=== PATIENT | female | born 1950 | race Caucasian/White ===

== ENCOUNTER 2016-12-24 07:20 | Emergency (ER) | payer OTHER ==
[2016-12-24] MEDS ORDERED: ASPIRIN 81 MG CHEWABLE TAB PO ONE (07:32)
[2016-12-24] MEDS ORDERED: MAALOX/LIDO/HYOSC GI COCKTAIL 55 ML BOTTLE PO ONE (07:32)
[2016-12-24] MEDS ORDERED: FAMOTIDINE 20 MG in NS 100 ML IV ONE (07:33)
--- NOTE | 2016-12-24 07:37 | UCPHY ---
H & P Time Seen by Provider: 12/24/16 07:26 Patient Type: Established HPI/ROS: HPI Abdominal bloating. Chest discomfort. 66-year-old female by private vehicle with her . This patient reports that she has had a bloating sensation in her abdomen for the last 36 hours. She reports she is taking antacids for this with no relief. She reports that last night at around 1:00 a.m. she developed which she describes as a deep chest discomfort described as a tightness and squeezing sensation. She reports she still has this to some extent but it is better at this time. She has had associated nausea but no vomiting. Last bowel movement was yesterday. This was normal. No bloody or melenic stool. No diarrhea. Last meal was yesterday evening at dinner time. She is a smoker. She also has a significant family history of heart disease. No other risk factors. ROS: Constitutional: No fever, no chills. No weakness. Eyes: No discharge. No changes in vision. ENT: No sore throat. No nasal congestion or rhinorrhea. Respiratory: No cough. No shortness of breath. Cardiac: As above, no palpitations. Gastrointestinal: As above, no vomiting, no diarrhea. Genitourinary: No hematuria. No dysuria or increased frequency with urination. Musculoskeletal: No back pain. No neck pain. No myalgias or arthralgias. Skin: No rashes. Neurological: No headache. No focal weakness or altered sensation. Past medical history: Depression. She takes and antidepressive medication. Dr. Patton is her primary care physician. Social history: Smoker. Social alcohol. Here with . Physical Exam: General Appearance: Alert, no distress. This patient is responding to questions appropriately and in full sentences. This patient appears well- hydrated and well-nourished. Eyes: Pupils equal and round no pallor or injection. No lid edema, erythema or injection. Respiratory: There are no retractions, lungs are clear to auscultation with good air movement bilaterally. Cardiovascular: Regular rate and rhythm. No murmur. Gastrointestinal: Abdomen is soft and nontender, no masses, bowel sounds normal. No focal tenderness at McBurney's point. No Somers sign. Neurological: Motor sensory function is grossly intact. Cranial nerves are normal. Gait is normal. Skin: Warm and dry, no rashes. Musculoskeletal: Neck is supple and nontender. Extremities are symmetrical. All joints range without pain or impingement. Psychiatric: No agitation. No depression. Database: EKG: EKG time is 7:37 a.m.; EKG shows a narrow complex normal sinus rhythm with a ventricular rate of 82. The MN, QRS, QT intervals are within normal limits. There are no ST-T wave changes indicative of ischemic or injury pattern. No evidence of right heart strain. Interpreted by me. Imaging: Chest x-ray AP portable; the cardiac mediastinal silhouette is unremarkable. No evidence of infiltrate or pneumothorax. Emphysema. No other acute cardiopulmonary disease process noted. Interpreted by me. CT angiogram of chest; no evidence of pulmonary embolism. No evidence of aortic dissection or aortic aneurysm. Emphysema. Otherwise negative study. Results were discussed with staff radiologist Dr. John Banks. Procedures: Emergency department course: IV placed. She was placed on a monitor. She was given 324 mg of chewed aspirin. She will be given a GI cocktail as well as 20 mg of IV Pepcid. EKG performed. Chest x-ray obtained. 11:00 a.m., patient re-evaluated. Resting comfortably at this time. She has been asymptomatic since above medications. No chest pain. No shortness of breath. Results of all diagnostic testing discussed with her and her . I recommended admission for serial troponins and stress testing. She does not want to be admitted. She understands the risks of declining admission in my professional opinion. We will have her follow up with [facility] for a stress test within the next 3 days. Her troponin was also repeated before discharge. This was a 3 hour delta troponin. This was negative. Return to Urgent Care/emergency department precautions discussed with her and her . All their questions were answered. She was discharged in good condition. Differential Diagnosis: The differential diagnosis on this patient includes but is not limited to indigestion, esophageal spasm, pleurisy, acute coronary syndrome. This represents a partial list of diagnoses considered. These considerations are based on history, physical exam, past history, reassessment and diagnostic testing. Constitutional: Initial Vital Signs Temperature (C) 36.9 C 12/24/16 07:46 Heart Rate 84 12/24/16 07:46 Respiratory Rate 16 12/24/16 07:46 Blood Pressure 169/92 H 12/24/16 07:46 O2 Sat (%) 90 L 12/24/16 07:46 O2 Delivery Mode Room Air Allergies/Adverse Reactions: No Known Allergies Allergy (Unverified 12/24/16 07:48) Home Medications: Medication Instructions Recorded Anafranil 12/24/16 Aspirin 12/24/16 Synthroid 12/24/16 Medical Decision Making - Data Points Laboratory Results: Laboratory Results 12/24/16 07:45 12/24/16 07:45 12/24/16 12/24/16 12/24/16 07:45 07:45 07:45 WBC 7.83 10^3/uL 10^3/uL (3.80-9.50) RBC 5.38 10^6/uL H 10^6/uL (4.18-5.33) Hgb 18.2 g/dL H g/dL (12.6-16.3) Hct 50.6 % H % (38.0-47.0) MCV 94.1 fL fL (81.5-99.8) MCH 33.8 pg pg (27.9-34.1) MCHC 36.0 g/dL g/dL (32.4-36.7) RDW 12.5 % % (11.5-15.2) Plt Count 196 10^3/uL 10^3/uL (150-400) MPV 10.0 fL fL (8.7-11.7) Neut % (Auto) 68.7 % % (39.3-74.2) Lymph % (Auto) 17.8 % % (15.0-45.0) [place] % (Auto) 12.4 % % (4.5-13.0) Eos % (Auto) 0.4 % L % (0.6-7.6) Baso % (Auto) 0.4 % % (0.3-1.7) Nucleat RBC Rel Count 0.0 % % (0.0-0.2) Absolute Neuts (auto) 5.39 10^3/uL 10^3/uL (1.70-6.50) Absolute Lymphs (auto) 1.39 10^3/uL 10^3/uL (1.00-3.00) Absolute Monos (auto) 0.97 10^3/uL H 10^3/uL (0.30-0.80) Absolute Eos (auto) 0.03 10^3/uL 10^3/uL (0.03-0.40) Absolute Basos (auto) 0.03 10^3/uL 10^3/uL (0.02-0.10) Absolute Nucleated RBC 0.00 10^3/uL 10^3/uL (0-0.01) Immature Gran % 0.3 % % (0.0-1.1) Immature Gran # 0.02 10^3/uL 10^3/uL (0.00-0.10) PT 12.9 SEC SEC (12.0-15.0) INR 1.00 (0.83-1.16) APTT 27.3 SEC SEC (23.0-38.0) D-Dimer 0.63 ug/mLFEU H ug/mLFEU (0.00-0.50) Sodium 143 mEq/L mEq/L (134-144) Potassium 3.8 mEq/L mEq/L (3.5-5.2) Chloride 102 mEq/L mEq/L (97-110) Carbon Dioxide 26 mEq/l mEq/l (22-31) Anion Gap 15 mEq/L mEq/L (8-16) BUN 19 mg/dL mg/dL (7-23) Creatinine 0.7 mg/dL mg/dL (0.6-1.0) Estimated GFR > 60 Glucose 116 mg/dL H mg/dL (70-100) Calcium 10.4 mg/dL mg/dL (8.5-10.4) Total Bilirubin 0.6 mg/dL mg/dL (0.1-1.4) Conjugated Bilirubin 0.3 mg/dL mg/dL (0.0-0.5) Unconjugated Bilirubin 0.3 mg/dL mg/dL (0.0-1.1) AST 25 IU/L IU/L (14-46) ALT 33 IU/L IU/L (9-52) Alkaline Phosphatase 92 IU/L IU/L (38-126) Troponin I < 0.012 ng/mL ng/mL (0-0.034) Total Protein 7.9 g/dL g/dL (6.3-8.2) Albumin 4.4 g/dL g/dL (3.5-5.0) Lipase 418.0 IU/L H IU/L (23-300) Medications Given: Discontinued Medications Aspirin (Aspirin) 324 mg PO EDNOW ONE Stop: 12/24/16 07:33 Last Admin: 12/24/16 08:04 Dose: 324 mg Famotidine 20 mg/ Sodium (Chloride) 102 mls @ 408 mls/hr IV EDNOW ONE Stop: 12/24/16 07:47 Last Admin: 12/24/16 08:10 Dose: 102 mls Miscellaneous Medication (Gi Cocktail) 55 ml PO EDNOW ONE Stop: 12/24/16 07:33 Last Admin: 12/24/16 08:04 Dose: 55 ml Departure - Departure Disposition: Home, Routine, Self-Care Clinical Impression: Chest discomfort, Abdominal bloating Condition: Good Instructions: Chest Pain (ED) Additional Instructions: Read and follow provided instructions. Follow-up with Dr. Preston Chiang or 1 of his partners at [facility] for re- evaluation and stress testing within the next 72 hours. Call their office when you get home this afternoon for appointment time. Explained this is for an emergency department follow-up for a stress test after you were seen here for chest discomfort. Return to the emergency department for return of chest pain, shortness of breath or other serious concerns. Referrals: Preston Chiang MD [Medical Doctor] - As per Instructions - PQRS PQRS Measurement: 134: Depression screening and followup, PRIME MD-PHQ2 (12 years and older) Over the last 2 weeks, how often have you been bothered by any of the following problems? 1. Feeling down, depressed, or hopeless? 2. Little interest or pleasure in doing things? Answered no to both questions. 130: Documentation of medications. Reviewed all patient medications, doses, route and frequency. 226: Do you smoke? No. 47: 65 and older: Advanced care planning. Patient designates surrogate decision maker as spouse. 51: 18 years old and older with diagnosis of COPD, spirometry performance. NA 52: 18 years old and older with COPD and symptoms of COPD or FEV1<60% predicted prescribed a B Agonist. NA
[2016-12-24 07:48] VITALS: RESP 16
[2016-12-24 07:50] LABS: % IMMATURE GRANULYOCYTES 0.3 % (0.0-1.1); ABSOLUTE IMMATURE GRANULOCYTES 0.02 10^3/uL (0.00-0.10); ADD DIFF? NO; ADD MORPH? NO; ADD SCAN? NO; ATYPICAL LYMPHOCYTE FLAG 0 (0-99); FRAGMENT RBC FLAG 0 (0-99); HEMATOCRIT 50.6 % (38.0-47.0); HEMOGLOBIN 18.2 g/dL (12.6-16.3); LEFT SHIFT FLG 0 (0-99); LIPEMIA HEMOLYSIS FLAG 90 (0-99); MEAN CELL HEMOGLOBIN 33.8 pg (27.9-34.1); MEAN CELL VOLUME 94.1 fL (81.5-99.8); PLATELET CLUMPS FLAG 0 (0-99); PLATELET COUNT 196 10^3/uL (150-400); RED BLOOD CELL COUNT 5.38 10^6/uL (4.18-5.33); RED CELL DISTRIBUTION WIDTH 12.5 % (11.5-15.2)
[2016-12-24 08:13] LABS: ALANINE AMINOTRANSFERASE 33 IU/L (9-52); ALBUMIN 4.4 g/dL (3.5-5.0); ALKALINE PHOSPHATASE 92 IU/L (38-126); ANION GAP 15 mEq/L (8-16); ASPARTATE AMINOTRANSFERASE 25 IU/L (14-46); BILIRUBIN,TOTAL 0.6 mg/dL (0.1-1.4); BILIRUBIN-CONJUGATED 0.3 mg/dL (0.0-0.5); BILIRUBIN-UNCONJUGATED 0.3 mg/dL (0.0-1.1); CALCIUM 10.4 mg/dL (8.5-10.4); CARBON DIOXIDE 26 mEq/l (22-31); CHLORIDE 102 mEq/L (97-110); CREATININE 0.7 mg/dL (0.6-1.0); GLOMERULAR FILTRATION RATE > 60; GLUCOSE 116 mg/dL (70-100); POTASSIUM 3.8 mEq/L (3.5-5.2); SODIUM 143 mEq/L (134-144); TOTAL PROTEIN 7.9 g/dL (6.3-8.2)
--- NOTE | 2016-12-24 08:23 | CPEKG ---
Heart Rate: 82 RR Interval: 732 P-R Interval: 172 QRSD Interval: 98 QT Interval: 392 QTC Interval: 458 P [place]: 54 QRS [place]: -25 T Wave [place]: 97 EKG Severity - ABNORMAL ECG - EKG Impression: SINUS RHYTHM EKG Impression: BORDERLINE LEFT AXIS DEVIATION EKG Impression: NONSPECIFIC T ABNORMALITIES, LATERAL LEADS Electronically Signed By: Alfa Carrillo 24-Dec-2016 14:30:41
[2016-12-24 08:24] LABS: TROPONIN I < 0.012 ng/mL (0-0.034)
[2016-12-24 08:33] LABS: PROTIME(PATIENT) 12.9 SEC (12.0-15.0)
[2016-12-24 08:34] LABS: APTT 27.3 SEC (23.0-38.0)
[2016-12-24] MEDS ORDERED: IOPAMIDOL (ISOVUE-370) 150 ML BTL IV ONE (09:35)
[2016-12-24 11:34] VITALS: BP 152/80; PULSE 82; TEMP 98.2; O2SAT 92
== END 2016-12-24 11:31 | disposition home or self-care (01) ==
LOC: CED 07:20
DX: R07.89 Other chest pain (principal); R14.0 Abdominal distension (gaseous); F17.200 Nicotine dependence, unspecified, uncomplicated; Z82.49 Family history of ischemic heart disease and other diseases of the circulatory system
CPT/HCPCS: 71010; 71275; 93005; 96365; G0463; Q9967; 80048-PO; 80076-PO; 83690-PO; 84484-PO; 85025-PO; 85378-PO; 85610-PO; 85730-PO; 93010-PO; 99215-PO

== ENCOUNTER → 2017-05-20 | Outpatient (CLI) | payer OTHER | LOC: FIMAGING 09:18 | PROVIDERS: ATTEND Internal Medicine | DX: Z12.31 Encounter for screening mammogram for malignant neoplasm of breast (principal) | CPT/HCPCS: G0202 ==